=== PATIENT | female | born 1995 | race African-American/Black ===

== ENCOUNTER 2023-09-18 16:23 | Emergency (ER) | payer BC ==
[2023-09-18 17:11] LABS: Bacteria/HPF None Seen HPF (None Seen); Bilirubin Negative (Negative); Blood, Urine 2+ (Negative); CAUTI Indications for Culture Pelvic or flank pain; Clarity Clear (Clear); Glucose, Urine (Dipstick) Normal (Negative); Ketone, Urine Negative (Negative); Leukocyte Negative Leu/uL (Negative); Nitrite Negative (Negative); Protein, Urine (Dipstick) Negative (Neg-Trace); RBC/HPF 0-3 HPF (0-3); Specific Gravity, Urine 1.004 (1.002-1.036); Squamous Epithelial None Seen HPF (0-3); Urobilinogen Normal mg/dL (Less than 2); WBC/HPF 0-3 HPF (0-3); pH, Urine 5.5 (5.0-9.0)
[2023-09-18 17:15] LABS: Urine Culture Reflex No No
== END 2023-09-18 18:04 | disposition home or self-care (01) ==
LOC: ERS 16:23
DX: E86.0 Dehydration (principal); E11.9 Type 2 diabetes mellitus without complications
CPT/HCPCS: 36416; 81001; 99284